=== PATIENT | female | born 1980 | race Caucasian/White ===

== ENCOUNTER 2016-08-08 11:43 | Emergency (ER) | payer SELFPAY ==
[2016-08-08 13:05] VITALS: BMI 27.2
--- NOTE | 2016-08-08 16:02 | US ---
PROCEDURE: OB Pelvic Ultrasound HISTORY: limited care COMPARISON: None available. FINDINGS: UTERUS: There is a single live intrauterine fetus with mean gestational age of 35 weeks and 2 days. Placenta is posterior. The amniotic fluid index is 10.5. heart rate is 128 beats per minute. CERVIX: Long and closed. No cervical abnormality seen. RIGHT OVARY: Not visualized. LEFT OVARY: Not visualized. FREE FLUID: None. OTHER FINDINGS: None. IMPRESSION: Limited emergency obstetric ultrasound examination. Single live intrauterine fetus with mean gestational age of 35 weeks and 2 days. Estimated date of delivery by ultrasound is 09/10/2016. Placenta is posterior. The amniotic fluid index is 10.5. The ultrasound dates correspond with the clinical dates. Clinical follow-up is recommended.
--- NOTE | 2016-08-23 14:54 | OBHP ---
Datetime: 08/08/2016 13:03 IP Adm Impression: , intrauterine IP Admit Plan: Observation/Evaluation; Discharge home Admit Comment, IP Provider: 36yo edc 08/30 @ 36.6wks by LMP 11/23 and and and 8wk us preswnts with pelvic pressure and back pain x2-3days occuring q30min. denies coitus x1mo, prom, vag bleeding o r decreased fm. PT received care in [facility] and states she was placed on LMWHeparin daily and Asa. Pt s tates she was placed on this 2ndary to ABs present in her blood. She states the Lovenox was discontin ued 2wks ago but she is still on the asa. Pt presented with [place] reports obtained during her pnc on h er cell phone. 22wk us c/w edc. Indic for medic not on us reports and not history, notes, f low sheets or labs seen. Pt states [place] has been in [place] about 2w[place] and will stay until delivery but has not decided which hospital she will deliver at. She states she is looking into obtaining medical coverage. pmhx: denies pshx:denies nkda medic: pnv; asa shx: denies etoh, drugs or tobacco i: 36.6wks Threatened [facility] [place] p: ob us to confirm edc. Addendum: us report d/w pt and fob labor precautions kick counts. Pelvic Type - PN: Adequate Extremities - PN: Normal Abdomen - PN: Normal Lungs - PN: Normal Heart - PN: Normal Neurologic - PN: Normal HEENT - PN: Normal General - PN: Normal Presentation-Admit: Vertex FHR - Baseline A Provider: 130 Membranes, Provider: Intact Contraction Comments Provider: q12 Comments, ACOG Physical Exam: ob us: chris 10.5; size c/w dated ega 35.2 by us; post plac (Annotations : Data stored by CPN on behalf of user) EGA AdmitDate IP: 36.6 Vital Signs Provider: Within Normal Limits IP Chief Complaint: Maternal discomfort NICHD Variability Prov Fetus A: Moderate 6-25bpm NICHD Accel Fetus A IP Provider: morning 1 thing FHR Category Provider Fetus A: Category I NICHD Decel Fetus A IP Provider: None Dilatation, Provider: 0 Station, Provider: L-2 Genitourinary Exam: Normal DTRs - PN: Normal
== END 2016-08-08 23:00 | disposition home or self-care (01) ==
LOC: H.EROB2 11:43 → EDBD 11:43 → H.EROB2 23:00
DX: O47.9 False labor, unspecified (principal); Z3A.36 36 weeks gestation of pregnancy